=== PATIENT | female | born 1980 | race Caucasian/White ===

== ENCOUNTER 2022-10-07 02:24 | Emergency (ER) | payer MEDICAID, OTHER ==
[~2022-10-07] VITALS: Ht 160 cm; Wt 81.0 kg
[2022-10-07 02:26] VITALS: BP 125/62
[2022-10-07] MEDS ORDERED: TOPUD MT (02:50)
[2022-10-07] MEDS ORDERED: ACETAMINOPHEN 325MG TABLET PO ONE (03:00)
== END 2022-10-07 03:55 | disposition home or self-care (01) ==
LOC: ER 02:24
DX: M54.50 Low back pain, unspecified (principal); G89.29 Other chronic pain
CPT/HCPCS: 99283

== ENCOUNTER 2023-10-13 05:55 | Emergency (ER) | payer MEDICAID ==
[~2023-10-13] VITALS: Ht 167.6 cm; Wt 69.0 kg
[~2023-10-13 05:55] MED LIST: TOPUD MT
[2023-10-13 05:58] VITALS: TEMP 98.1; O2SAT 98
[2023-10-13] MEDS: KETOROLAC 60MG/2ML VIAL IM ONE (06:45)
[2023-10-13] MEDS: MORPHINE SULFATE 4 MG/ML INJ (FOR IV/IM USE) IM ONE (06:45)
[2023-10-13 07:25] VITALS: BP 123/68; PULSE 88; RESP 17
== END 2023-10-13 08:00 | disposition home or self-care (01) ==
LOC: ER 05:55
DX: M54.50 Low back pain, unspecified (principal); D64.9 Anemia, unspecified
CPT/HCPCS: 99284; 96372; J1885; J2270

== ENCOUNTER 2024-03-15 14:37 | Emergency (ER) | payer MEDICAID ==
[~2024-03-15] VITALS: Ht 165.1 cm; Wt 75.0 kg
[2024-03-15 14:42] VITALS: BP 130/52; PULSE 84; RESP 18; TEMP 98.2; O2SAT 99
[2024-03-15] MEDS: KETOROLAC 30MG/ML VIAL IM ONE (15:51)
== END 2024-03-15 16:30 | disposition home or self-care (01) ==
LOC: ER 14:57
DX: M54.6 Pain in thoracic spine (principal)
CPT/HCPCS: 99283; 93005; 96372; J1885

== ENCOUNTER 2024-10-15 05:27 | Emergency (ER) | payer MEDICAID ==
[~2024-10-15] VITALS: Ht 170.2 cm; Wt 78.0 kg
[~2024-10-15 05:27] MED LIST changes: +FAMO20TA8 PO; +FOLI-43 PO; +MULT-1146 MT; +ONDA-239 PO; +THIA100T72 PO
[2024-10-15 05:31] VITALS: O2SAT 97
[2024-10-15] MEDS: IBUPROFEN 400MG TABLET PO ONE (07:24)
[2024-10-15] MEDS: ACETAMINOPHEN WITH CODEINE 300/30MG TABLET PO ONE (07:24)
[2024-10-15] MEDS ORDERED: IBUP-2028 PO (08:14)
[2024-10-15 08:33] VITALS: BP 132/75; PULSE 83; RESP 12; TEMP 36.9; O2SAT 97
== END 2024-10-15 08:35 | disposition home or self-care (01) ==
LOC: ER 05:27
DX: M54.50 Low back pain, unspecified (principal); J45.909 Unspecified asthma, uncomplicated; D64.9 Anemia, unspecified; Z79.899 Other long term (current) drug therapy
CPT/HCPCS: 99283

== ENCOUNTER 2025-01-01 02:10 | Emergency (ER) | payer MEDICAID ==
[~2025-01-01] VITALS: Ht 167.6 cm; Wt 82.0 kg
[~2025-01-01 02:10] MED LIST changes: +IBUP-2028 PO
[2025-01-01 02:20] VITALS: TEMP 36.9; O2SAT 100
[2025-01-01] MEDS: KETOROLAC 30MG/ML VIAL IM ONE (02:45)
[2025-01-01] MEDS ORDERED: MORPHINE SULFATE 4 MG/ML INJ (FOR IV/IM USE) IM ONE (02:45)
[2025-01-01] MEDS: DEXAMETHASONE 10 MG/ML VIAL IM ONE (02:45)
[2025-01-01] MEDS: ACETAMINOPHEN 325MG TABLET PO ONE (02:45)
[2025-01-01 04:55] LABS: HCG SCREEN NEGATIVE
[2025-01-01] MEDS ORDERED: NAPR-1074 MT (05:35)
[2025-01-01] MEDS ORDERED: METH4TAB95 MT (05:35)
[2025-01-01] MEDS ORDERED: BACL-141 MT (05:35)
[2025-01-01] MEDS: DEXAMETHASONE 10 MG/ML VIAL IM NR (05:50)
[2025-01-01 05:51] VITALS: TEMP 98.5
[2025-01-01] MEDS: KETOROLAC 30MG/ML VIAL IM NR (05:51)
[2025-01-01] MEDS: ACETAMINOPHEN 325MG TABLET PO NR (05:51)
[2025-01-01] MEDS: MORPHINE SULFATE 4 MG/ML INJ (FOR IV/IM USE) IM NR (05:51)
[2025-01-01 06:11] VITALS: BP 105/75; PULSE 80; RESP 18; O2SAT 100
== END 2025-01-01 06:17 | disposition home or self-care (01) ==
LOC: ER 02:10
DX: G89.29 Other chronic pain (principal); M54.50 Low back pain, unspecified; Z00.00 Encounter for general adult medical examination without abnormal findings; Z79.899 Other long term (current) drug therapy; Z98.890 Other specified postprocedural states
CPT/HCPCS: 99284; 81025; 84703; 96372; J1885; J1100; J2270

== ENCOUNTER 2025-03-08 00:45 | Emergency (ER) | payer MEDICAID ==
[~2025-03-08] VITALS: Ht 152.4 cm; Wt 77.0 kg
[~2025-03-08 00:45] MED LIST changes: +BACL-141 MT; +METH4TAB95 MT; +NAPR-1074 MT
[2025-03-08 01:03] VITALS: TEMP 36.9; O2SAT 100
[2025-03-08] MEDS: CYCLOBENZAPRINE 10MG TABLET PO ONE (02:32)
[2025-03-08 02:35] VITALS: PULSE 85
[2025-03-08] MEDS: KETOROLAC 15MG/ML VIAL IM ONE (02:35)
[2025-03-08 02:36] VITALS: BP 124/64; RESP 12
[2025-03-08] MEDS: LIDOCAINE 5% PATCH TOP SCH (02:36)
[2025-03-08] MEDS ORDERED: NAPR-1176 MT (03:03)
[2025-03-08] MEDS ORDERED: CYCL5TAB3 MT (03:03)
[2025-03-08] MEDS ORDERED: LIDO-53 TP (03:03)
== END 2025-03-08 03:27 | disposition home or self-care (01) ==
LOC: ER 00:45
DX: G89.29 Other chronic pain (principal); M54.50 Low back pain, unspecified; M19.90 Unspecified osteoarthritis, unspecified site; Z79.899 Other long term (current) drug therapy; Z79.1 Long term (current) use of non-steroidal anti-inflammatories (NSAID); Z79.52 Long term (current) use of systemic steroids
CPT/HCPCS: 99283; 96372; J1885

== ENCOUNTER 2025-03-26 05:06 | Emergency (ER) | payer MEDICAID ==
[~2025-03-26] VITALS: Ht 154.9 cm; Wt 76.0 kg
[~2025-03-26 05:06] MED LIST changes: +CYCL5TAB3 MT; +LIDO-53 TP; +NAPR-1176 MT
[2025-03-26 05:09] VITALS: O2SAT 100
[2025-03-26] MEDS: KETOROLAC 15MG/ML VIAL IM ONE (06:12)
[2025-03-26] MEDS ORDERED: T3 PO (06:13)
[2025-03-26] MEDS: MORPHINE SULFATE 15MG TABLET SR PO ONE (06:26)
[2025-03-26 06:33] VITALS: BP 117/79; PULSE 86; RESP 14; TEMP 37.2; O2SAT 100
== END 2025-03-26 06:34 | disposition home or self-care (01) ==
LOC: ER 05:06
DX: G89.29 Other chronic pain (principal); M54.9 Dorsalgia, unspecified; F41.9 Anxiety disorder, unspecified; D64.9 Anemia, unspecified; Z98.890 Other specified postprocedural states; Z79.899 Other long term (current) drug therapy
CPT/HCPCS: 99283; 96372; J1885

== ENCOUNTER 2025-04-11 19:50 | Emergency (ER) | payer MEDICAID ==
[~2025-04-11] VITALS: Ht 152.4 cm; Wt 63.0 kg
[~2025-04-11 19:50] MED LIST changes: +T3 PO
[2025-04-11 19:52] VITALS: O2SAT 98
[2025-04-11] MEDS: HYDROCODONE/ACETAMINOPHEN 10/325MG TABLET PO ONE (21:26)
[2025-04-11] MEDS: KETOROLAC 30MG/ML VIAL IM ONE (21:56)
[2025-04-11] MEDS: MORPHINE SULFATE 4 MG/ML INJ (FOR IV/IM USE) IM ONE (22:48)
[2025-04-12] VITALS: BP 111/55; PULSE 82; RESP 16; TEMP 36.8; O2SAT 99
[2025-04-13] MEDS ORDERED: OXYC1TAB5 MT (19:23)
== END 2025-04-12 00:05 | disposition home or self-care (01) ==
LOC: ER 19:50
DX: G89.29 Other chronic pain (principal); M54.50 Low back pain, unspecified; M19.90 Unspecified osteoarthritis, unspecified site; Z79.1 Long term (current) use of non-steroidal anti-inflammatories (NSAID)
CPT/HCPCS: 99284; 81025; 96372; J1885; J2270

== ENCOUNTER 2025-04-13 16:18 | Emergency (ER) | payer MEDICAID ==
[~2025-04-13] VITALS: Ht 170.2 cm; Wt 80.0 kg
[2025-04-13 16:33] VITALS: O2SAT 99
[2025-04-13] MEDS: MORPHINE SULFATE 4 MG/ML INJ (FOR IV/IM USE) IM ONE (18:15)
[2025-04-13] MEDS: KETOROLAC 30MG/ML VIAL IM ONE (18:15)
[2025-04-13] MEDS ORDERED: OXYC1TAB5 MT (19:23)
[2025-04-13 19:44] VITALS: BP 124/51; PULSE 73; RESP 18; TEMP 36.9; O2SAT 100
== END 2025-04-13 19:45 | disposition home or self-care (01) ==
LOC: ER 16:18
DX: G89.29 Other chronic pain (principal); M54.9 Dorsalgia, unspecified; M19.90 Unspecified osteoarthritis, unspecified site; Z79.1 Long term (current) use of non-steroidal anti-inflammatories (NSAID)
CPT/HCPCS: 99284; 96372; J1885; J2270

== ENCOUNTER 2025-05-18 17:56 | Emergency (ER) | payer MEDICAID ==
[~2025-05-18] VITALS: Ht 154.9 cm; Wt 82.0 kg
[~2025-05-18 17:56] MED LIST changes: +OXYC1TAB5 MT
[2025-05-18 17:59] VITALS: O2SAT 99
[2025-05-18] MEDS: KETOROLAC 15MG/ML VIAL IM ONE (21:45)
[2025-05-18] MEDS: MORPHINE SULFATE 4 MG/ML INJ (FOR IV/IM USE) IM ONE (21:46)
[2025-05-18] MEDS: LIDOCAINE 5% PATCH TOP SCH (21:47)
[2025-05-18 22:37] VITALS: BP 116/53; PULSE 78; RESP 16; TEMP 37.1; O2SAT 99
== END 2025-05-18 22:56 | disposition home or self-care (01) ==
LOC: ER 17:56
DX: G89.29 Other chronic pain (principal); M54.9 Dorsalgia, unspecified; M19.90 Unspecified osteoarthritis, unspecified site; Z79.1 Long term (current) use of non-steroidal anti-inflammatories (NSAID); F10.90 Alcohol use, unspecified, uncomplicated; Y90.9 Presence of alcohol in blood, level not specified
CPT/HCPCS: 99284; 81025; 96372; J1885; J2270